=== PATIENT | male | born 1960 | race Caucasian/White ===

== ENCOUNTER 2022-05-01 08:30 | Outpatient (CLI) | payer OTHER, SELFPAY ==
--- NOTE | ~2022-05-01 | NM_ITS ---
EXAMINATION: NM clinton stress w perfusion DATE: 05/01/2022 12:10 INDICATION: Chest pain TECHNIQUE: Rest images were obtained following intravenous administration of 10 mCi Tc99m tetrofosmin (Myoview). The patient was infused intravenously with Lexiscan (Regadenoson). Then, 30 mCi Tc99m tet rofosmin (Myoview) was administered intravenously, and stress images were obtained in supine position . Repeat post stress images were obtained in prone position. Data was reconstructed into short axis a nd horizontal and vertical long axis SPECT images. Gated SPECT images were also obtained. COMPARISON: None. FINDINGS: Small mild nonreversible perfusion defect at the apical lateral and anteroapical segments w hich persists on prone imaging consistent with infarct. Second likely small mild nonreversible perfus ion defect at the basilar inferior and basilar lateral inferior segments also persistent on prone roberta ging and consistent with infarct. No reversible ischemia identified. There is normal left ventricular chamber size, wall motion and ejection fraction. Left ventricular ejection fraction measures 51%. IMPRESSION: 1. A couple small mild nonreversible infarcts involving the apical lateral and apical anterior segmen ts as well as the basilar inferior and basal lateral inferior segments. No reversible ischemia. 2. Left ventricular ejection fraction measuring 51%. Reviewed, dictated and finalized at location A. IMPRESSION: 1. A couple small mild nonreversible infarcts involving the apical lateral and apical anterior segments as well as the basilar inferior and basal lateral infe rior segments. No reversible ischemia. 2. Left ventricular ejection fraction measuring 51%.
--- NOTE | 2022-05-01 08:50 | ECHO_ITS ---
Patient Info Name: Carmelo Archer Age: 62 years : 1960 Gender: Male Ht: 70 in Wt: 230 lbs BSA: 2.30 m2 BP: 131 / 86 mmHg Technical Quality: Fair Exam Date: 05/01/2022 9:16 AM Exam Location: [facility] Pulmonary Patient Status: Outpatient Admit Date: 05/01/2022 Staff Ordering Physician: Rl Enrique PA-C Coupling Machine Operator: Jenifer Gray RDCS Attending Provider: Rl Enrique PA-C Referring Physician: Iva NOBLES; Exam Type: CA echo doppler color flow Study Info Indications R07.9 - Chest pain, unspecified Complete two-dimensional, color flow and Doppler transthoracic echocardiogram is performed. Summary 1. Complete two-dimensional, color flow and Doppler transthoracic echocardiogram is performed. 2. Left ventricular chamber dimension is normal. 3. Left ventricular systolic function is normal, estimated at 55-60%. 4. There is moderately increased left ventricular wall thickness. 5. The left ventricular diastolic function is grade I diastolic dysfunction. 6. E/e' 13 is mildly elevated. 7. Global longitudinal strain is abnormal at -11.9%. 8. Left atrial chamber dimension is mildly enlarged. 9. There is anterior directed jet of mild to moderate mitral valve regurgitation. 10. No pulmonary hypertension, estimated pulmonary arterial systolic pressure is 19 mmHg. Left Ventricle E/e' 13 is mildly elevated. Global longitudinal strain is abnormal at -11.9%. Left ventricular chamber dimension is normal. Left ventricular systolic function is normal, estimated at 55-60%. There is moderately increased left ventricular wall thickness. The left ventricular diastolic function is grade I diastolic dysfunction. Right Ventricle Right ventricular chamber dimension is normal. Right ventricular systolic function is normal. Left Atria Left atrial chamber dimension is mildly enlarged. Right Atria Right atrial chamber dimension is normal. Aortic Valve The aortic valve is trileaflet. There is no aortic valve stenosis. There is no aortic valve regurgitation. Pulmonic Valve There is no pulmonic regurgitation. Mitral Valve There is anterior directed jet of mild to moderate mitral valve regurgitation. There is no mitral valve stenosis. Tricuspid Valve There is no tricuspid valve regurgitation. No pulmonary hypertension, estimated pulmonary arterial systolic pressure is 19 mmHg. Pericardium/Pleural There is no pericardial effusion. Inferior Vena Cava Normal inferior vena cava with >50% collapse upon inspiration consistent with normal right atrial pressure, 5 mmHg. Aorta The aortic root size at the sinus of Valsalva is normal. Left Ventricular Outflow Tract Name Value Normal LVOT 2D LVOT Diameter 2.0 cm LVOT Doppler LVOT Peak Gradient 4 mmHg LVOT Mean Gradient 2 mmHg LVOT VTI 18 cm LVOT VTI/AV VTI Ratio 0.8 LVOT Stroke Volume 57 ml LVOT CO 2.6 l/min LVOT CI 1.1 l/min/m2
--- NOTE | 2022-05-01 08:51 | EST_ITS ---
Patient Info Name: Carmelo Archer Age: 62 years : 1960 Gender: Male Ht: 70 in Wt: 230 lbs BSA: 2.30 m2 HR: 53 bpm BP: 184 / 107 mmHg Heart Rhythm: Sinus Rhythm Exam Date: 05/01/2022 11:19 AM Exam Location: [facility] Stress Patient Status: Outpatient Admit Date: 05/01/2022 Staff Ordering Physician: Abelardo Pickett MD Attending Provider: Rl Enrique PA-C Exercise Technologist: Apple Dalton CT Exercise Physician: Everette Rubi DO Exam Type: CA stress clinton w NM Study Info Indications R06.02 - Shortness of breath R07.9 - Chest pain, unspecified A regadenoson stress test was performed. Summary 1. 1. Negative lexiscan stress test for ischemic ST changes by ECG criteria. 2. 2. Baseline hypertension. 3. 3. Nuclear scan to follow and will be reported separately. Please correlate with it. 4. 4. Patient informed of the above results. Protocol: Lexiscan Stress ECG Details Stage: REST Duration (min): 5 min : 8 sec HR (bpm): 54 SBP (mmHg): 184 DBP (mmHg): 107 Stage: REST Duration (min): 7 min : 1 sec HR (bpm): 54 SBP (mmHg): 184 DBP (mmHg): 107 Stage: STAGE 1 Duration (min): 1 min : 0 sec HR (bpm): 54 SBP (mmHg): 184 DBP (mmHg): 107 Stage: RECOVERY Duration (min): 1 min : 0 sec HR (bpm): 67 SBP (mmHg): 201 DBP (mmHg): 95 Stage: RECOVERY Duration (min): 2 min : 0 sec HR (bpm): 68 SBP (mmHg): 201 DBP (mmHg): 95 Stage: RECOVERY Duration (min): 3 min : 0 sec HR (bpm): 64 SBP (mmHg): 201 DBP (mmHg): 95 Stage: RECOVERY Duration (min): 3 min : 21 sec HR (bpm): 64 SBP (mmHg): 205 DBP (mmHg): 95 Rest HR: 54 bpm Peak HR: 70 bpm Rest Sys BP: 184 mmHg Peak Sys BP: 205 mmHg Max Pred HR: 157 bpm % Max Pred HR: 45 % Target HR: 133 bpm Max RPP: 14,350 bpm*mmHg Termination Reason: Completed protocol Cardiac Symptoms: Shortness of breath, Lightheadedness Total Time: 1 min : 0 sec Rest Mak BP: 107 mmHg Peak Mak BP: 95 mmHg Total Dose: 0.4 mg Resting ECG Sinus bradycardia, delayed precordial R/S transition. Stress ECG No ST changes. Arrhythmias Transient bradycardia to 40 bpm immediately after lexiscan injection. Report Signatures
== END 2022-05-01 08:31 | disposition home or self-care (01) ==
LOC: ANHCARD 08:32
PROVIDERS: PCP Family Medicine; Visit Provider Physician Assistant
DX: R07.9 Chest pain, unspecified (principal); I20.8 Other forms of angina pectoris
CPT/HCPCS: 78452; 93017; 93306; A9502; J2785

== ENCOUNTER 2022-08-25 00:57 | Day surgery (SDC) | payer OTHER, SELFPAY ==
[2022-08-25] VITALS (7 sets, daily range): BP systolic 153–209; BP diastolic 90–116; PULSE 55–72; RESP 15–22; TEMP 36.4; O2SAT 95–100; BMI 33.6
--- NOTE | 2022-08-25 08:38 | P.SEDATION_ITS ---
Moderate Sedation Note-Pt Data Patient Data Diagnosis: Mitral regurgitation Present Complaint: None Procedure to be performed/Plan: Transesophageal echocardiogram Allergies Allergy/AdvReac Type Severity Reaction Status Date / Time No Known Allergies Allergy Verified 08/25/22 07:36 Home Medications Medication Instructions Recorded Confirmed Type ibuprofen 800 mg tablet 800 mg PO Q8H #90 tabs 02/13/20 08/25/22 Rx metoprolol succinate 100 mg See Rx Instructions .Route 09/11/21 08/25/22 Rx tablet,extended release 24 hr .COMPLEX #30 tabs aspirin 81 mg tablet,delayed 81 mg PO DAILY 12/03/21 08/25/22 History release nitroglycerin 0.4 mg sublingual 0.4 mg sublingual Q5M PRN chest 12/03/21 08/25/22 Rx tablet pain #30 tabs metformin 500 mg tablet See Rx Instructions .Route 04/15/22 08/25/22 Rx .COMPLEX #270 tabs lisinopril 20 2 tablet PO DAILY #180 tabs 05/15/22 08/25/22 Rx mg-hydrochlorothiazide 12.5 mg tablet rosuvastatin 20 mg tablet 20 mg PO DAILY #90 tabs 07/14/22 08/25/22 Rx Current Medications: Active Medications Sodium Chloride (Normal Saline Iv) 500 mls @ 30 mls/hr IV CONT .[id number] JHON Sedation/Anesthesia: No previous sedation/anesthesia problems (including family history). FORMERLY [facility] Past Medical History Medical History Essential (primary) hypertension History of stress test (~2012) Mixed hyperlipidemia Type 2 diabetes mellitus without complications Family History Family History Mother Family history of lung cancer, Onset Age: 53 Family history of chronic obstructive pulmonary disease Social History Social History Smoking status: Never smoker Alcohol intake: current Mod Sed Physical Exam Physical Exam Pre Procedural Exam: Normal: Appearance, Eyes, Ears, Nose, Neck (Supple, normal range of motion), Throat (Posterior hypopharynx clear nonerythematous), Airway (Normal anatomy, no obstruction), Lungs (Clear to auscultation bilaterally), Heart Size, Heart Rate (Systolic murmur), Heart Rhythm, Neuro Exam, Abdomen, Extremities and Skin Hours since solid foods: 12 Hours since liquid intake: 12 Mallampati Classification: class II Internal Medicine - PN: Obj Da Vital Signs Vital Signs: Vital Signs - 24 hr 08/25/22 07:41 Temperature 36.4 C L Pulse Rate 58 L Respiratory Rate 22 H Blood Pressure 191/114 H Pulse Oximetry 100 Oxygen Delivery Room Air Meds/Results Medications: Active Medications Generic Name Dose Route Start Last Admin Trade Name Freq PRN Reason Stop Dose Admin Sodium Chloride 500 mls @ 30 mls/hr 08/25/22 07:30 Normal Saline Iv IV CONT .[id number] JHON ASA Classification/Sedation ASA Classification/Sedation ASA Class: III Emergent: No Risks: Risks, benefits and alternatives explained and patient/family accepted plan for sedation. Patient re-evaluated immediately prior to sedation.
--- NOTE | 2022-08-25 08:41 | WPDHPUPDATE1 ---
History and Physical Update Update Date/Time: 08/25/22 08:41 History and Physical has been reviewed, including an updated exam of the patient. There are NO changes in the patient's condition. Risks, benefits, and alternatives have been discussed and questions answered. Patient agrees to proceed with procedure.
--- NOTE | 2022-08-25 08:41 | WPDTEECHO ---
[facility] TransEsophageal Echocardiogram Date of procedure: 08/25/22 Procedure Type: Transesophageal echocardiogram Diagnosis: Mitral regurgitation, shortness of breath Indications: Shortness of breath, mitral regurgitation Image Quality: Acceptable Findings: Brief history present illness: Patient is a pleasant 62-year-old male with a past medical history significant for hypertension, type 2 diabetes mellitus, hyperlipidemia and significant murmur with surface echocardiogram suggesting [id number] eccentric regurgitation and complaints of fatigue and exertional dyspnea referred for transesophageal echocardiogram. Procedure in detail: After verbal and written informed consent was obtained the patient risks, benefits, and alternatives explained in detail the patient agreed to proceed with the plan of care as outlined above. The patient was evaluated at bedside in the [facility] procedure room. The posterior oropharynx, neck, and jaw angle all within normal limits on examination. Lungs were clear to auscultation. See pre-sedation note for further details The patient was then placed in the appropriate 30 to 45 degree angle supine position at a slight left lateral decubitus position. Patient was monitored throughout the study with telemetry, oxygen saturation, end-tidal CO2 monitoring, blood pressure, heart rate, and respirations. The posterior hypopharynx was then locally anesthetized using repeated administration of Hurricaine spray as well as gargled viscous lidocaine. After local anesthetic of the posterior hypopharynx was achieved and the oral bite block placed, moderate sedation was administered. After confirmation of adequate moderate sedation, the transesophageal echocardiogram probe was advanced through the oral bite block into the posterior hypopharynx and into the esophagus easily and without complication. Multiple, multiplanar echocardiographic images were obtained in multiple standard re- projections. Pulsed wave, continuous-wave, and color-flow Doppler were utilized in conjunction with this study. At the conclusion of the study, the transesophageal echocardiogram probe was removed easily and without complication. The patient tolerated the procedure well without difficulty. Patient was in sinus rhythm throughout the study. Moderate Sedation/Anesthesia administration: Patient reports no prior problems with sedation/anesthesia. Please see pre-sedation noted for physical examination documentation. As noted above, after adequate local anesthesia of the posterior hypopharynx was achieved, a total of 3mg intravenous Versed and a total of 75mcg intravenous Fentanyl in multiple divided doses was administered for moderate sedation. Sedation start time was 0854 and end time was 0914 for a total intra-service/procedure face-face time of 20 minutes. Sedation was administered by a qualified/certified observer Monica Larsen RN under my supervision with intra-procedure [id number] observation and management throughout the entirety of the procedure. There were no other issues or complications and patient tolerated the procedure well. See post-anesthesia documentation. FINDINGS: LEFT VENTRICLE: Size and systolic function were within normal limits without wall motion abnormalities with ejection fraction of 65% with mild concentric left ventricular hypertrophy. RIGHT VENTRICLE: Not well visualized although suspected normal size and function with limited views. LEFT ATRIUM: Mild left atrial enlargement RIGHT ATRIUM: Normal size. INTERATRIAL SEPTUM: Interatrial septum is anatomically normal without evidence of shunt with color-flow Doppler nor with injection of agitated saline with and without Valsalva. MITRAL VALVE: Mitral valve is anatomically normal minimal thickening of the posterior leaflet with preserved leaflet excursion and evidence of probable partial prolapse of the middle scallop with moderate highly eccentric anteriorly d
== END 2022-08-25 10:00 | disposition home or self-care (01) ==
PROVIDERS: PCP Emergency Medicine; Visit Provider Internal Medicine Cardiovascular Disease
PROC: (CPT 93312; principal; 2022-08-25 08:30)
DX: I34.0 Nonrheumatic mitral (valve) insufficiency (principal); R06.02 Shortness of breath; I10 Essential (primary) hypertension; E78.2 Mixed hyperlipidemia; E11.9 Type 2 diabetes mellitus without complications; Z79.84 Long term (current) use of oral hypoglycemic drugs; Z79.82 Long term (current) use of aspirin
CPT/HCPCS: 93312; 93320; 93325; J2250; J3010; J7030

== ENCOUNTER 2022-09-17 01:03 | Day surgery (SDC) | payer OTHER, SELFPAY ==
[2022-09-16 13:30] VITALS: BMI 33.3
[2022-09-17] VITALS (27 sets, daily range): BP systolic 102–170; BP diastolic 58–87; PULSE 54–77; RESP 12–20; TEMP 36.1–36.8; O2SAT 96–100; BMI 33.7
[2022-09-17 07:42] LABS: Basophils Absolute Auto 0.1 K/mm3 (0.0-0.1); Basophils Percent Auto 0.8 % (0.2-1.2); Eosinophils Absolute Auto 0.3 K/mm3 (0-0.3); Eosinophils Percent Auto 2.4 % (0-4.4); Hematocrit 45.3 % (42.0-52.0); Hemoglobin 14.5 g/dL (14.0-18.0); Immature Granulocyte Absolute 0.03 K/mm3 (0.00-0.031); Immature Granulocyte Percent A 0.3 % (0-0.5); Lymphocytes Absolute Auto 2.07 K/mm3 (0.9-3.2); Lymphocytes Percent Auto 20.3 % (18.3-44.2); Mean Corpuscular Hemoglobin 26.7 pg (26-34); Mean Corpuscular Volume 83.4 fl (80-100); Mean Platelet Volume 10.1 fl (7.4-10.4); Monocytes Absolute Auto 0.8 K/mm3 (0.1-0.6); Monocytes Percent Auto 7.9 % (2.6-8.5); Neutrophils Percent Auto 68.3 % (45.5-73.1); Platelet Count Result 236 k/mm3 (150-375); Red Blood Count 5.43 M/mm3 (4.6-6.20); Red Cell Distribution Width 13.5 % (11.5-14.5); White Blood Count 10.2 K/mm3 (4.5-10.0)
[2022-09-17 07:57] LABS: Anion Gap 12 mmol/L (8-16); Blood Urea Nitrogen 23 mg/dL (9-20); Calcium 9.1 mg/dL (8.4-10.2); Carbon Dioxide 29 mmol/L (22-30); Chloride 98 mmol/L (98-107); Estimated CRCL calculation 75 ml/min; Estimated Glomerular Filt Rate > 60; Glucose 201 mg/dL (65-110); Potassium 3.6 mmol/L (3.4-5.0); Sodium 139 mmol/L (137-145)
[2022-09-17 08:00] LABS: Prothrombin Time 12.6 Seconds (11.1-14.7)
--- NOTE | 2022-09-17 08:33 | WPDHPUPDATE1 ---
History and Physical Update Update Date/Time: 09/17/22 08:33 History and Physical has been reviewed, including an updated exam of the patient. There are NO changes in the patient's condition. Risks, benefits, and alternatives have been discussed and questions answered. Patient agrees to proceed with procedure.
--- NOTE | 2022-09-17 08:33 | WPDMODSED ---
Moderate Sedation Note-Pt Data Patient Data Diagnosis: Severe mitral regurgitation, preoperative evaluation Present Complaint: None Procedure to be performed/Plan: Left heart catheterization with selective left and right coronary angiography with left ventriculography and hemodynamics History and physical update: Patient is a pleasant 62-year-old gentleman with a history of type 2 diabetes mellitus, hypertension, hyperlipidemia and suspected severe mitral valve regurgitation with complaints of progressive fatigue and exertional dyspnea who underwent noninvasive ischemic evaluation with small fixed defect in apical lateral, apical anterior, basal inferior basal inferolateral wall without ischemia EF 51% which did not resolve with prone imaging referred for left heart catheterization for delineation of his coronary anatomy based on this and anticipation for possible mitral valve replacement and/or repair. Impression/plan of care: Abnormal stress test-[facility] Severe mitral regurgitation-referral to Dr. Maguire at [facility] for possible mitral clip vs surgical MV repair/replacement. Hypertension-continue medical management Diabetes mellitus-medical management Further recommendations to follow post cardiac catheterization. Allergies Allergy/AdvReac Type Severity Reaction Status Date / Time No Known Allergies Allergy Verified 09/17/22 07:42 Home Medications Medication Instructions Recorded Confirmed Type metoprolol succinate 100 mg See Rx Instructions .Route 09/11/21 09/16/22 Rx tablet,extended release 24 hr .COMPLEX #30 tabs aspirin 81 mg tablet,delayed 81 mg PO DAILY 12/03/21 09/16/22 History release nitroglycerin 0.4 mg sublingual 0.4 mg sublingual Q5M PRN chest 12/03/21 09/16/22 Rx tablet pain #30 tabs metformin 500 mg tablet See Rx Instructions .Route 04/15/22 09/16/22 Rx .COMPLEX #270 tabs lisinopril 20 2 tablet PO DAILY #180 tabs 05/15/22 09/17/22 Rx mg-hydrochlorothiazide 12.5 mg tablet rosuvastatin 20 mg tablet 20 mg PO DAILY #90 tabs 07/14/22 09/16/22 Rx ibuprofen 800 mg tablet 800 mg PO Q8H PRN Pain 09/16/22 09/16/22 History Current Medications: Active Medications Sodium Chloride (Normal Saline Iv) 500 mls @ 100 mls/hr IV CONT .Q5H JHON Sedation/Anesthesia: No previous sedation/anesthesia problems (including family history). [facility] Past Medical History Medical History Essential (primary) hypertension History of stress test (~2012) Mixed hyperlipidemia Type 2 diabetes mellitus without complications Family History Family History Mother Family history of lung cancer, Onset Age: 53 Family history of chronic obstructive pulmonary disease Social History Social History Smoking packs per day: 0 Smoking cigarettes per day: 0.0 Smoking status: Never smoker Second hand tobacco smoke exposure: No Alcohol intake: current Substance use: never Substance use type: does not use Living arrangements: alone Spiritual care concerns: No Mod Sed Physical Exam Physical Exam Pre Procedural Exam: Normal: Appearance, Eyes, Ears, Nose, Neck (Supple, normal range of motion), Throat (Posterior hypopharynx clear, nonerythematous), Airway (Normal anatomy, no obstruction), Lungs (Clear to auscultation bilaterally), Heart Size, Heart Rate, Heart Rhythm, Neuro Exam, Abdomen, Liver, Extremities and Skin Hours since solid foods: 12 Hours since liquid intake: 12 Mallampati Classification: class II Internal Medicine - PN: Obj Da Vital Signs Vital Signs: Vital Signs - 24 hr 09/17/22 07:33 Temperature 36.1 C L Pulse Rate 56 L Respiratory Rate 14 Blood Pressure 170/75 H Pulse Oximetry 97 Oxygen Delivery Room Air Meds/Results Medications: Active Medications Generic Name Dose Route Start Last Admin Trade Name Ankur Adkins
--- NOTE | 2022-09-17 08:38 | PM.OP ---
Procedure Note - Brief Procedure Note - Brief Date of procedure: 09/17/22 Pre-op diagnosis: preop mitraclip Abnormal stress test, severe mitral regurgitation, exertional dyspnea Procedure performed: Left heart catheterization with selective left and right coronary angiography with left ventriculography and hemodynamics Description of procedure: BRIEF HISTORY OF PRESENT ILLNESS: Patient is a pleasant 62-year-old male with a history of hypertension, hyperlipidemia, diabetes mellitus and suspected severe mitral valve regurgitation with complaints of fatigue, exertional dyspnea with abnormal stress test suggestive fixed defects without reversible ischemia EF 51% referred for left heart catheterization for delineation of his coronary anatomy in consideration for preoperative evaluation. PROCEDURES PERFORMED: 1. Left heart catheterization 2. Selective left and right coronary angiography 3. Left ventriculography and hemodynamics 4. Moderate/conscious sedation administration CATHETERS UTILIZED: Left coronary system- 5 [place]ian JL4 catheter Right coronary system- 5 [place]amanian JR4 catheter Left ventriculography and hemodynamics- 5 [place]ian angled pigtail catheter PROCEDURE IN DETAIL: After verbal and written informed consent was obtained the patient, risks, benefits, and alternatives explained in detail the patient agreed to proceed with the plan of care as outlined above. The patient was subsequently brought to the cardiac catheterization lab, placed on the cardiac catheterization table, and prepped and draped in the usual sterile fashion. Utilizing approximately 19cc of 1% subcutaneous Lidocaine, the right groin was then locally anesthetized. Utilizing the modified Seldinger technique, a 5 [place]amanian arterial vascular access sheath was inserted in the right common femoral artery easily and without complications. Through this access, coronary angiography was subsequently obtained in multiple standard re-projections. Following this, a 5 [place]ian angled pigtail catheter was advanced retrograde across aortic valve into the cavity of the left ventricle. Left ventriculography was performed and pullback across aortic valve was subsequently recorded. The vascular access sheath and angiographic catheters were flushed before and after catheter exchanges. At the conclusion of the diagnostic portion of the procedure, all angiographic guidewires and catheters were removed and the 5 [place]amanian arterial vascular access sheath was then eventually pulled and satisfactory hemostasis was achieved using manual compression. Initial delay and removal that she secondary to severely elevated blood pressures. Prior to beginning the case systolic blood pressures were greater than 250 mm Hg for which 10 mg IV hydralazine was administered with improvement in BP. She remained hypertensive throughout the procedure intervention became even more hypertensive with systolic blood pressure is climbing back up to greater than 220 mm Hg prompting another 10 mg IV hydralazine. Blood pressure remained unacceptably high after the case for sheath removal for which an additional 10 mg IV hydralazine was administered for total 30 mg. There no complications noted at the conclusion of the diagnostic portion of the study. MODERATE SEDATION/ANESTHESIA ADMINISTRATION: Patient reports no prior problems with sedation/anesthesia. Please see pre-sedation noted for physical examination documentation. Sedation start time was 0903 and end time was 0933 for a total intra-service/procedure face-face time of 30 minutes. A total of 2 mg intravenous Versed and a total of 50 mcg intravenous Fentanyl was administered for moderate sedation. Moderate sedation was administered by qualified/certified observer Jolly Short RN under my supervision with intra-procedure [id number] observation and management throughout the entirety of the procedure. There were no other issues or complications and patient tolerated the procedure well. Se
--- NOTE | 2022-09-17 10:02 | ECG_ITS ---
Measurements Intervals [place] Rate: 64 P: 53 AR: 179 QRS: 1 QRSD: 104 T: 136 QT: 422 QTc: 436 Interpretive Statements SINUS RHYTHM POSSIBLE LEFT ATRIAL ENLARGEMENT ST-T WAVE ABNORMALITY IN LAT/HIGH LAT LEADS- CONSIDER ISCHEMIA ABNORMAL ECG NO PREVIOUS ECG AVAILABLE FOR COMPARISON Electronically Signed On 09-17-2022 12:12:32 DEMO SPECIALIST by Everette Rubi D.O.
[2022-09-17] MEDS: SODIUM CHLORIDE 0.9% IV 1,000 ML 125 ML IV CONT (10:08)
--- NOTE | 2022-09-17 10:28 | SUR.PHASEII ---
Pt resting in bed, reports pain has decreased in sharpness from 5 to 4 out of 10, VSS, Dr. John at bedside discussing plan with patient. Awaiting further orders.
--- NOTE | 2022-09-17 11:45 | ECG_ITS ---
Measurements Intervals [place] Rate: 60 P: -23 SD: 168 QRS: 1 QRSD: 108 T: 122 QT: 440 QTc: 441 Interpretive Statements SINUS RHYTHM ST-T WAVE ABNORMALITY IN LAT/HIGH LAT LEADS- CONSIDER ISCHEMIA ABNORMAL ECG COMPARED TO ECG 09/17/2022 10:05:46 NO SIGNIFICANT CHANGES Electronically Signed On 09-17-2022 12:15:09 EDUCATIONAL COORDINATOR by Everette Rubi D.O.
--- NOTE | 2022-09-17 15:38 | PC.NURSE ---
Pt sat up on side of bed, reported mild lightheadedness that resolved after sitting for a couple minutes. Pt walked to restroom and voided without difficulty. Pt returned to chair, reported feeling lightheaded and symptoms resolved after placing a cold compress to the back of his neck, VSS, NAD noted, pt now eating and reports feeling much better.
--- NOTE | 2022-09-17 16:38 | ECG_ITS ---
Measurements Intervals [place] Rate: 68 P: -15 UT: 181 QRS: -7 QRSD: 104 T: 136 QT: 419 QTc: 446 Interpretive Statements SINUS RHYTHM VENTRICULAR PREMATURE COMPLEX DELAYED PRECORDIAL R/S TRANSITION LEFT VENTRICULAR HYPERTROPHY AND ST-T CHANGE ST-T WAVE ABNORMALITY IN LATERAL LEADS- CONSIDER ISCHEMIA ABNORMAL ECG COMPARED TO ECG 09/17/2022 11:57:09 LEFT VENTRICULAR HYPERTROPHY NOW PRESENT Electronically Signed On 09-17-2022 17:28:09 PRESS CLIPPER by Everette Rubi D.O.
[2022-09-17] MEDS: SODIUM CHLORIDE 0.9% IV 500 ML 999 ML IV CONT (16:40)
[2022-09-17 16:56] LABS: Glucose Point of Care 312 mg/dl (65-105)
--- NOTE | 2022-09-17 17:14 | SUR.PHASEII ---
Addendum entered by Rl Colindres RN 09/17/22 17:40: Chest pain began at 1635 Original Note: Pt reported an episode of mild chest pain 01/09, Dr. John notified, EKG obtained, pain resolved after about a few minutes. Dr. John came to bedside and discussed with pt, pt reports his CP went away and he feels fine and would prefer to go home. Repeat orthostatic VS completed and pt no longer symptomatic after 500 ml bolus. Pt ambulated down hallway and back without difficulty, pt denies shortness of breath, chest pain, lightheadedness or other symptoms. Dr. John notified. Prepare for discharge home, pt has a friend that will stay with him overnight. Pt and friend, Kaylie, educated on calling 911 if new symptoms present or if chest pain reoccurs.
== END 2022-09-17 17:20 | disposition home or self-care (01) ==
PROVIDERS: PCP Emergency Medicine; Visit Provider Internal Medicine Cardiovascular Disease
PROC: 4A023N7 Measurement of Cardiac Sampling and Pressure, Left Heart, Percutaneous Approach (ICD-10-PCS; CPT 93452; principal; 2022-09-17 08:30)
DX: I25.10 Atherosclerotic heart disease of native coronary artery without angina pectoris (principal); R07.9 Chest pain, unspecified; R94.39 Abnormal result of other cardiovascular function study; I34.0 Nonrheumatic mitral (valve) insufficiency; R06.09 Other forms of dyspnea; I10 Essential (primary) hypertension; E78.2 Mixed hyperlipidemia; E11.9 Type 2 diabetes mellitus without complications; Z79.82 Long term (current) use of aspirin; Z79.84 Long term (current) use of oral hypoglycemic drugs
CPT/HCPCS: 36415; 80048; 82948; 85025; 85610; 93005; 93458; A9270; C1887; C1894; J0360; J1644; J2250; J3010; J7040

== ENCOUNTER 2022-11-27 14:04 | Outpatient (CLI) | payer OTHER, SELFPAY ==
[2022-11-27 19:23] LABS: Basophils Absolute Auto 0.1 K/mm3 (0.0-0.1); Eosinophils Absolute Auto 0.6 K/mm3 (0-0.3); Eosinophils Percent Auto 5.9 % (0-4.4); Hematocrit 35.3 % (42.0-52.0); Hemoglobin 10.3 g/dL (14.0-18.0); Immature Granulocyte Absolute 0.05 K/mm3 (0.00-0.031); Immature Granulocyte Percent A 0.5 % (0-0.5); Lymphocytes Absolute Auto 1.28 K/mm3 (0.9-3.2); Lymphocytes Percent Auto 11.9 % (18.3-44.2); Mean Corpuscular HGB Conc 29.2 g/dl (32-36); Mean Corpuscular Hemoglobin 24.3 pg (26-34); Mean Corpuscular Volume 83.5 fl (80-100); Mean Platelet Volume 10.1 fl (7.4-10.4); Monocytes Absolute Auto 1.1 K/mm3 (0.1-0.6); Monocytes Percent Auto 10.4 % (2.6-8.5); Neutrophils Absolute Auto 7.6 K/mm3 (1.3-6.7); Neutrophils Percent Auto 70.3 % (45.5-73.1); Platelet Count Result 525 k/mm3 (150-375); Red Blood Count 4.23 M/mm3 (4.6-6.20); Red Cell Distribution Width 15.7 % (11.5-14.5); White Blood Count 10.8 K/mm3 (4.5-10.0)
[2022-11-27 20:05] LABS: Hypochromasia 1+ (NORMAL); Platelet Estimate Increased (Adequate); Schistocytes None Seen (NORMAL)
[2022-11-27 20:06] LABS: Anisocytosis 2+ (NORMAL)
[2022-11-27 20:23] LABS: Alanine Aminotransferase 16 U/L (6-50); Albumin Level 4.2 g/dL (3.5-5.1); Alkaline Phosphatase 86 U/L (38-126); Anion Gap 9 mmol/L (8-16); Aspartate Amino Transferase 24 U/L (17-59); Bilirubin,Total 0.3 mg/dL (0.2-1.3); Blood Urea Nitrogen 14 mg/dL (9-20); Carbon Dioxide 27 mmol/L (22-30); Chloride 104 mmol/L (98-107); Estimated Glomerular Filt Rate 47; Glucose 162 mg/dL (65-110); Potassium 4.6 mmol/L (3.4-5.0); Sodium 140 mmol/L (137-145)
[2022-11-27 20:31] LABS: Microalbumin Urine Random 61.6 mg/L (0-16.7)
[2022-11-27 20:57] LABS: MALB Creatinine Ratio 16.6 mg/g (0-30)
== END 2022-11-27 14:05 | disposition home or self-care (01) ==
LOC: ANHGOSHLAB 14:05
PROVIDERS: PCP Emergency Medicine; Visit Provider Emergency Medicine
DX: D64.9 Anemia, unspecified (principal); E11.9 Type 2 diabetes mellitus without complications; R19.5 Other fecal abnormalities
CPT/HCPCS: 36415; 80053; 82043; 83036; 85025

== ENCOUNTER 2023-01-08 09:44 | Outpatient (CLI) | payer OTHER, SELFPAY ==
[2023-01-08 20:39] LABS: Anion Gap 9 mmol/L (8-16); Blood Urea Nitrogen 25 mg/dL (9-20); Calcium 9.2 mg/dL (8.4-10.2); Carbon Dioxide 32 mmol/L (22-30); Chloride 97 mmol/L (98-107); Cholesterol 176 mg/dL (0-200); Estimated Glomerular Filt Rate > 60; Glucose 187 mg/dL (65-110); HDL Direct 40 mg/dL; Potassium 4.1 mmol/L (3.4-5.0); Sodium 138 mmol/L (137-145); Triglycerides 250 mg/dL (<150)
[2023-01-08 20:53] LABS: LDL Cholesterol Direct 82 mg/dL
== END 2023-01-08 09:45 | disposition home or self-care (01) ==
LOC: ANHGOSHLAB 09:46
PROVIDERS: PCP Emergency Medicine; Visit Provider Internal Medicine Cardiovascular Disease
DX: E11.59 Type 2 diabetes mellitus with other circulatory complications (principal); I15.2 Hypertension secondary to endocrine disorders
CPT/HCPCS: 36415; 80048; 80061

== ENCOUNTER 2023-01-29 14:02 | Outpatient (CLI) | payer OTHER, SELFPAY ==
[2023-01-29 19:21] LABS: Basophils Absolute Auto 0.1 K/mm3 (0.0-0.1); Basophils Percent Auto 0.8 % (0.2-1.2); Eosinophils Absolute Auto 0.3 K/mm3 (0-0.3); Eosinophils Percent Auto 2.4 % (0-4.4); Hematocrit 44.7 % (42.0-52.0); Hemoglobin 13.1 g/dL (14.0-18.0); Immature Granulocyte Absolute 0.04 K/mm3 (0.00-0.031); Immature Granulocyte Percent A 0.4 % (0-0.5); Lymphocytes Absolute Auto 2.07 K/mm3 (0.9-3.2); Lymphocytes Percent Auto 18.7 % (18.3-44.2); Mean Corpuscular HGB Conc 29.3 g/dl (32-36); Mean Corpuscular Hemoglobin 22.8 pg (26-34); Mean Corpuscular Volume 77.7 fl (80-100); Mean Platelet Volume 10.7 fl (7.4-10.4); Monocytes Percent Auto 9.4 % (2.6-8.5); Neutrophils Absolute Auto 7.5 K/mm3 (1.3-6.7); Neutrophils Percent Auto 68.3 % (45.5-73.1); Platelet Count Result 290 k/mm3 (150-375); Red Blood Count 5.75 M/mm3 (4.6-6.20); Red Cell Distribution Width 19.2 % (11.5-14.5); White Blood Count 11.1 K/mm3 (4.5-10.0)
[2023-01-29 19:33] LABS: Hypochromasia 1+ (NORMAL); Ovalocytes 1+ (NORMAL); Platelet Estimate Adequate (Adequate); Schistocytes None Seen (NORMAL)
== END 2023-01-29 14:03 | disposition home or self-care (01) ==
LOC: ANHGOSHLAB 14:04
PROVIDERS: PCP Emergency Medicine; Visit Provider Physician Assistant
DX: D64.9 Anemia, unspecified (principal)
CPT/HCPCS: 36415; 85025

== ENCOUNTER 2023-01-30 19:34 | Emergency (ER) | payer OTHER, SELFPAY ==
[2023-01-30 19:44] VITALS: BP 192/89; PULSE 114; RESP 16; TEMP 36.3; O2SAT 100
--- NOTE | 2023-01-30 19:57 | ED.GENADULT ---
HPI - General Adult General Chief complaint: Back Pain/Injury Stated complaint: BACK PAIN Time Seen by Provider: 01/30/23 19:45 Source: patient, RN notes reviewed and old records reviewed Mode of arrival: ambulatory Limitations: no limitations History of Present Illness HPI narrative: 63 year old male with complaints of pain to the thoracic medial spine region down to lower back with some spasm like sensations which started about an hour ago. Patient reports that he took 600 mg of Ibuprofen which s starting to help his discomfort at this time. Patient denies any known injury to his back or any radiation of pain down his buttock or into his legs. Patient reports that he has had back pain in the past also, denies any known chronic back issue. Patient had open heart in October 05 vessel bypass, states he is attending cardiac rehab and doing well. MD complaint: back pain Onset (ago): hour(s) (1) Severity scale (1-10): 6 Quality: aching and other (spasms) Treatments prior to arrival: NSAID Related Data Home Medications Medication Instructions Recorded Confirmed aspirin 81 mg tablet,delayed 81 mg PO DAILY 12/03/21 01/30/23 release ferrous sulfate 325 mg (65 mg 325 mg PO DAILY 11/27/22 01/30/23 iron) tablet metoprolol tartrate 25 mg tablet 25 mg PO DAILY 11/27/22 01/30/23 lisinopril 20 1 tablet PO DAILY 12/29/22 01/30/23 mg-hydrochlorothiazide 12.5 mg tablet rosuvastatin 20 mg tablet 40 mg PO DAILY 01/26/23 01/30/23 Allergies Allergy/AdvReac Type Severity Reaction Status Date / Time isosorbide Allergy Fatigued Verified 01/30/23 19:41 Review of Systems Review of Systems: CONSTITUTIONAL: Denies fever, chills, or sweats. EYES: Denies visual changes, redness, or discharge. ENT: Denies rhinorrhea, congestion, sore throat, or otalgia. CARDIOVASCULAR: Denies chest pain, palpitations, or edema. RESPIRATORY: Denies cough or dyspnea. GASTROINTESTINAL: Denies abdominal pain, nausea, vomiting, or diarrhea. GENITOURINARY: Denies dysuria or hematuria. SKIN: Denies rash or itching. MUSCULOSKELETAL: Report back pain,no joint pain, or myalgia.some spasm type sensation NEUROLOGIC: Denies headache, numbness, or weakness. PSYCHIATRIC: Denies anxiety or depression. All systems reviewed & are unremarkable except as noted in HPI and below PMFSH Past Medical History Medical History Essential (primary) hypertension FH: mitral valve repair History of stress test (~2012) Mixed hyperlipidemia Type 2 diabetes mellitus without complications Surgical History Surgical History History of quadruple bypass Family History Family History Mother Family history of lung cancer, Onset Age: 53 Family history of chronic obstructive pulmonary disease Social History Social History Smoking packs per day: 0 Smoking cigarettes per day: 0.0 Smoking status: Never smoker Second hand tobacco smoke exposure: No Alcohol intake: current Substance use: never Substance use type: does not use Living arrangements: alone Spiritual care concerns: No Comments At time of signature, agree with nursing past medical, surgical, social and family history. There is no relevant family history pertinent to the presenting complaint Exam Narrative: GENERAL: Well-appearing, well-nourished, and in no acute distress. HEAD: Normocephalic, atraumatic. EYES: PERRLA and EOMI. ENT: Nares clear, no rhinorrhea or epistaxis. Mucous membranes moist.TM's normal NECK: Supple.no lymphadenopathy CHEST: Clear to auscultation. No respiratory distress.SAO2 on room air HEART: Regular rate and rhythm. No murmur heard. Normal peripheral pulses. ABDOMEN: Soft, nontender, nondistended, normal active bowel sounds. EXTREMITIES: Normal range of motion. No
== END 2023-01-30 20:12 | disposition home or self-care (01) ==
PROVIDERS: Emergency Provider Registered Nurse; PCP Physician Assistant
DX: M54.6 Pain in thoracic spine (principal); I10 Essential (primary) hypertension; E78.2 Mixed hyperlipidemia; E11.9 Type 2 diabetes mellitus without complications; Z95.1 Presence of aortocoronary bypass graft; Z79.82 Long term (current) use of aspirin
CPT/HCPCS: 99213; G0463

== ENCOUNTER 2023-04-03 11:26 | Outpatient (CLI) | payer OTHER, SELFPAY ==
[2023-04-03 18:25] LABS: Basophils Absolute Auto 0.1 K/mm3 (0.0-0.1); Basophils Percent Auto 0.7 % (0.2-1.2); Eosinophils Absolute Auto 0.2 K/mm3 (0-0.3); Eosinophils Percent Auto 1.7 % (0-4.4); Hematocrit 46.2 % (42.0-52.0); Hemoglobin 13.9 g/dL (14.0-18.0); Immature Granulocyte Absolute 0.04 K/mm3 (0.00-0.031); Immature Granulocyte Percent A 0.4 % (0-0.5); Lymphocytes Percent Auto 24.1 % (18.3-44.2); Mean Corpuscular HGB Conc 30.1 g/dl (32-36); Mean Corpuscular Hemoglobin 23.9 pg (26-34); Mean Corpuscular Volume 79.5 fl (80-100); Mean Platelet Volume 10.4 fl (7.4-10.4); Monocytes Percent Auto 9.9 % (2.6-8.5); Neutrophils Absolute Auto 6.3 K/mm3 (1.3-6.7); Neutrophils Percent Auto 63.2 % (45.5-73.1); Platelet Count Result 280 k/mm3 (150-375); Red Blood Count 5.81 M/mm3 (4.6-6.20); Red Cell Distribution Width 18.7 % (11.5-14.5)
[2023-04-03 18:34] LABS: Alanine Aminotransferase 26 U/L (6-50); Albumin Level 4.7 g/dL (3.5-5.1); Alkaline Phosphatase 55 U/L (38-126); Anion Gap 7 mmol/L (8-16); Aspartate Amino Transferase 32 U/L (17-59); Bilirubin,Total 0.7 mg/dL (0.2-1.3); Blood Urea Nitrogen 19 mg/dL (9-20); Calcium 9.6 mg/dL (8.4-10.2); Carbon Dioxide 34 mmol/L (22-30); Chloride 97 mmol/L (98-107); Estimated Glomerular Filt Rate > 60; Glucose 160 mg/dL (65-110); Sodium 138 mmol/L (137-145)
[2023-04-03 18:35] LABS: Iron 125 ug/dL (49-181)
[2023-04-03 18:46] LABS: Percent Iron Saturation 31 % (20-50)
== END 2023-04-03 11:27 | disposition home or self-care (01) ==
LOC: ANHGOSHLAB 11:27
PROVIDERS: PCP Physician Assistant; Visit Provider Physician Assistant
DX: D64.9 Anemia, unspecified (principal); R06.02 Shortness of breath
CPT/HCPCS: 36415; 80053; 82728; 83540; 83550; 84443; 85025

== ENCOUNTER 2023-04-03 11:55 | Outpatient (CLI) | payer OTHER, SELFPAY ==
--- NOTE | ~2023-04-03 | XR_ITS ---
Clinical Indication: Shortness of breath PA and lateral views of the chest: Comparison: None Findings: 17 mm right basilar pulmonary nodule is present. Left lung clear. Cardiomediastinal silhou ette is within normal limits, status post CABG. Bones and soft tissues are unremarkable. Impression: 17 mm right basilar pulmonary nodule. This may be calcified, but CT scan is recommended to better ass ess morphology. Status post CABG. Reviewed, dictated and finalized at location . Impression: 17 mm right basilar pulmonary nodule. This may be calcified, but CT scan is rec ommended to better assess morphology. Status post CABG.
== END 2023-04-03 11:56 | disposition home or self-care (01) ==
PROVIDERS: PCP Physician Assistant; Visit Provider Physician Assistant
DX: R06.02 Shortness of breath (principal); Z95.1 Presence of aortocoronary bypass graft; R91.1 Solitary pulmonary nodule
CPT/HCPCS: 71046

== ENCOUNTER 2023-05-06 13:30 | Outpatient (RCR) | payer OTHER, SELFPAY ==
[2023-01-13 08:26] VITALS: PULSE 70
[2023-01-28 14:25] LABS: Glucose Point of Care 162 mg/dl (65-105)
== END 2023-05-06 15:00 | disposition home or self-care (01) ==
LOC: ANHCPREHAB 13:30
PROVIDERS: PCP Emergency Medicine; Visit Provider Internal Medicine Cardiovascular Disease
DX: Z95.1 Presence of aortocoronary bypass graft (principal)
CPT/HCPCS: 93798

== ENCOUNTER 2024-02-17 08:50 | Outpatient (CLI) | payer MEDICARE, SELFPAY ==
[2024-02-17 12:15] LABS: Basophils Absolute Auto 0.1 K/mm3 (0.0-0.1); Basophils Percent Auto 0.9 % (0.2-1.2); Eosinophils Absolute Auto 0.2 K/mm3 (0-0.3); Eosinophils Percent Auto 2.3 % (0-4.4); Hematocrit 48.7 % (42.0-52.0); Immature Granulocyte Absolute 0.06 K/mm3 (0.00-0.031); Immature Granulocyte Percent A 0.6 % (0-0.5); Lymphocytes Absolute Auto 2.74 K/mm3 (0.9-3.2); Lymphocytes Percent Auto 28.9 % (18.3-44.2); Mean Corpuscular HGB Conc 30.8 g/dl (32-36); Mean Corpuscular Hemoglobin 26.7 pg (26-34); Mean Corpuscular Volume 86.8 fl (80-100); Mean Platelet Volume 10.4 fl (7.4-10.4); Monocytes Absolute Auto 0.9 K/mm3 (0.1-0.6); Neutrophils Absolute Auto 5.5 K/mm3 (1.3-6.7); Neutrophils Percent Auto 58.3 % (45.5-73.1); Platelet Count Result 294 k/mm3 (150-375); Red Blood Count 5.61 M/mm3 (4.6-6.20); Red Cell Distribution Width 13.4 % (11.5-14.5); White Blood Count 9.5 K/mm3 (4.5-10.0)
[2024-02-17 12:29] LABS: Alanine Aminotransferase 24 U/L (6-50); Albumin Level 4.6 g/dL (3.5-5.1); Alkaline Phosphatase 57 U/L (38-126); Anion Gap 9 mmol/L (4-12); Aspartate Amino Transferase 44 U/L (17-59); Bilirubin,Total 0.6 mg/dL (0.2-1.3); Blood Urea Nitrogen 24 mg/dL (9-20); Calcium 9.9 mg/dL (8.4-10.2); Carbon Dioxide 30 mmol/L (22-30); Chloride 100 mmol/L (98-107); Cholesterol 161 mg/dL (0-200); Estimated Glomerular Filt Rate > 60; Glucose 249 mg/dL (65-110); HDL Direct 41 mg/dL; Potassium 3.9 mmol/L (3.4-5.0); Sodium 139 mmol/L (137-145); Triglycerides 215 mg/dL (<150)
[2024-02-17 12:40] LABS: LDL Cholesterol Direct 88 mg/dL
[2024-02-17 12:52] LABS: Prostate Specific Antigen 0.7 ng/mL (< OR = 4.0)
[2024-02-17 15:51] LABS: Hemoglobin A1C 8.6 % (<5.7)
== END 2024-02-17 08:51 | disposition home or self-care (01) ==
PROVIDERS: PCP Emergency Medicine; Visit Provider Emergency Medicine
DX: E11.9 Type 2 diabetes mellitus without complications (principal); E78.2 Mixed hyperlipidemia; Z12.5 Encounter for screening for malignant neoplasm of prostate
CPT/HCPCS: 36415; 80053; 80061; 83036; 84153; 85025; G0103

== ENCOUNTER 2024-03-03 16:13 | Outpatient (CLI) | payer MEDICARE, SELFPAY ==
--- NOTE | ~2024-03-03 | XR_ITS ---
EXAMINATION: XR toe 1st LT min 2V DATE: 03/03/2024 16:31 INDICATION: Pain in left toes. TECHNIQUE: 4 views of left great toe were obtained. COMPARISON: None. FINDINGS: Bone alignment is normal. No fracture. There is mild osteoarthritis of first metatarsophala ngeal joint. IMPRESSION: 1. Mild osteoarthritis of first metatarsophalangeal joint. Reviewed, dictated and finalized at location E.
== END 2024-03-03 16:14 ==
PROVIDERS: PCP Emergency Medicine; Visit Provider Emergency Medicine
DX: M79.675 Pain in left toe(s) (principal); M19.072 Primary osteoarthritis, left ankle and foot
CPT/HCPCS: 73660

== ENCOUNTER 2024-03-11 13:35 | Outpatient (CLI) | payer MEDICARE, SELFPAY ==
[2024-03-11 18:40] LABS: Uric Acid 4.7 mg/dL (3.5-8.5)
== END 2024-03-11 13:36 | disposition home or self-care (01) ==
LOC: ANHGOSHLAB 13:36
PROVIDERS: PCP Emergency Medicine; Visit Provider Emergency Medicine
DX: M79.675 Pain in left toe(s) (principal)
CPT/HCPCS: 36415; 84550

== ENCOUNTER 2024-06-16 15:17 | Outpatient (CLI) | payer MEDICARE, SELFPAY ==
[2024-06-16 18:04] LABS: Alanine Aminotransferase 30 U/L (6-50); Albumin Level 4.7 g/dL (3.5-5.1); Alkaline Phosphatase 52 U/L (38-126); Anion Gap 15 mmol/L (4-12); Aspartate Amino Transferase 48 U/L (17-59); Bilirubin,Total 0.7 mg/dL (0.2-1.3); Blood Urea Nitrogen 22 mg/dL (9-20); Carbon Dioxide 29 mmol/L (22-30); Chloride 93 mmol/L (98-107); Estimated Glomerular Filt Rate 55; Glucose 189 mg/dL (65-110); Potassium 3.9 mmol/L (3.4-5.0); Sodium 137 mmol/L (137-145)
[2024-06-16 18:38] LABS: Hemoglobin A1C 7.4 % (<5.7)
== END 2024-06-16 15:18 | disposition home or self-care (01) ==
LOC: ANHGOSHLAB 15:19
PROVIDERS: PCP Emergency Medicine; Visit Provider Emergency Medicine
DX: E11.59 Type 2 diabetes mellitus with other circulatory complications (principal)
CPT/HCPCS: 36415; 80053; 83036

== ENCOUNTER 2025-09-13 08:53 | Outpatient (CLI) | payer MEDICARE, SELFPAY ==
--- OUTSIDE RECORDS SUMMARY | 2025-09-13 09:27 | XMS_ITS | Clinical Summary ---
Author Organization [facility] Address [facility] [place] [address] Care Team Providers Care Feeder Catcher Name Role Phone EnriqueRl mendes Brit DE LEÓN Primary Care Provider + Keenan Corral MD Unavailable [phone] Joni John MD Unavailable [phone] Kingston Patel MD Unavailable Hedy Romero MD Unavailable [phone] Allergies Active Allergy Reactions Criticality Noted Date Comments Isosorbide Mononitrate Fatigue Low 10/10/2022 Severe lethargy Medications metFORMIN (GLUCOPHAGE) 500 mg tabletIndicatio ns:type 2 diabetes mellitus Take by mouth 2 (two) times a day 1000 mg in the a.m. and 500 mg in the p.m. 2 Active aspirin 81 mg enteric coated tabletIndicatio ns:prevention of thrombosis Take 1 tablet (81 mg total) by mouth nightly Active acetaminophen 500 mg capsuleIndicati ons:Fever,Pain Take 2 capsules (1,000 mg total) by mouth every 6 (six) hours as needed for pain 30 tablet 3 Active polyethylene glycol (MIRALAX) 17 gram packetIndicatio ns:constipation Take 1 packet (17 g total) by mouth daily [address] (PROTONIX) 40 mg EC tablet TAKE 1 TABLET BY MOUTH EVERY DAY 30 tablet 1 3 Active ferrous sulfate 325 mg (65 mg of elemental iron) tablet TAKE 1 TABLET (65 MG OF ELEMENTAL IRON TOTAL) BY MOUTH DAILY WITH BREAKFAST 30 tablet 3 Active metoprolol tartrate (LOPRESSOR) 25 mg immediate release tablet TAKE 1/2 OF A TABLET (12.5 MG TOTAL) BY MOUTH TWICE A DAY 90 tablet 3 3 Active tiotropium (SPIRIVA) 18 mcg per inhalation capsule Place 1 puff (1 capsule total) into inhaler and inhale daily Active cetirizine (ZyrTEC) 10 mg tablet Take 1 tablet (10 mg total) by mouth daily Active rosuvastatin (CRESTOR) 40 mg tablet Take 1 tablet (40 mg total) by mouth daily 30 tablet 4 Active lisinopril-hydr oCHLOROthiazide (ZESTORETIC) 20-12.5 mg per tabletIndicatio ns:hypertension Take 2 tablets by mouth daily 60 tablet 4 Active Active Problems Problem Noted Date Diagnosed Date Pulmonary nodules 12/04/2023 S/P CABG (coronary artery bypass graft) 11/18/19 23 S/P mitral valve repair 11/18/2022 Coronary artery disease invo lving benton coronary artery of benton heart without angina pectoris 09/23/2022 Overview (09/23/2022): Added automatically from request for surgery [id number] Chronic fatigue 08/01/2022 Abnormal stress test 06/30/2022 ACOSTA (dyspnea on exertion) 06/30/2022 Hypertension associated with diabetes 06/30/2022 Mixed diabetic hyperlipidemi a associated with type 2 diabetes mellitus 06/30/2022 Nonrheumatic mitral valve regurgitation 06/30/20 Stable angina pectoris 06/30/2022 Resolved Problems Problem Noted Date Diagnosed Date Resolved Date Coronary artery disease (CAD) excluded 10/17/2022 11/18/2022 Surgical History Surgery Date Site/Laterality Comments TONSILLECTOMY CARDIAC CATHETERIZATION OTHER SURGICAL HISTORY 08/02/2022 - 09/01/2022 ROBERT CORONARY ARTERY BYPASS GRAFT Medical History Medical History Date Comments Hypertension Diabetes mellitus Abnormal stress test 06/2022 ACOSTA (dyspnea on exertion) 06/2022 Hypertension associated with diabetes (HCC) 08/2 022 Mixed diabetic hyperlipidemi a associated with type 2 diabetes mellitus (HCC) 06/2022 Nonrheumatic mitral valve regurgitation 06/2022 Stable angina pectoris 06/2022 Coronary artery disease invo lving benton coronary artery of benton heart without angina pectoris 09/2022 Chronic fatigue 07/2022 White coat syndrome without diagnosis of hyperte nsion Hx of CABG 10/22/2022 Anemia GERD (gastroesophageal reflux disease) Family History Medical History Relation Name Comments Cancer Mother Relation Name Status Comments Father unknown Other Mother Social History Tobacco Use Types Packs/Day Years Used Date Smoking Tobacco: Never Passive Smoke Exposure: Never Smokeless Tobacco: Never Tobacco Cessation:Counseling Given: Not Answered OASIS [id number]: Social Isolation Answer Da te Recorded Frequency of experiencing loneliness or isolatio n Never 11/04/2022 AUDIT-C Answer Date Recorded Q1: How often do you have a drink containing alc ohol? Monthly or less 12/04/2023 Average Number of Drinks Not on file 024 Frequency of Binge Drinking Not on file 12/2023 Overall Financial Resource Strain (CARDIA) Answe r Date Recorded How hard is it for you to pa y for the very basics like food, housing, medical care, and heating? Not hard at all 10/20/2022 Hunger Vital Sign Answer Date Recorded Within the past 12 months, y ou worried that your food would run out before you got the money to buy more. Never true 10/20/20 22 Within the past 12 months, t he food you bought just didn't last and you didn't have money to get more. Never true 10/20/2022 PRAPARE - Transportation Answer Date Re corded In the past 12 months, has l ack of transportation kept you from medical appointments or from getting medications? No 10/02 In the past 12 months, has l ack of transportation kept you from meetings, work, or from getting things needed for daily living? No 10/20/2022 Housing Stability Vital Sign Answer Roberto Carlos e Recorded In the last 12 months, was t here a time when you were not able to pay the mortgage or rent on time? No 10/20/2022 Number of Places Lived in the Last Year Not on f ile 10/20/2022 In the last 12 months, was t here a time when you did not have a steady place to sleep or slept in a usp (including now)? No 10/20/2022 Personal Safety Answer Date Recorded Have you ever been in or are you currently in a harmful physical or emotional relationship or is someone making you feel afraid or unsafe? Denies 02/18/2023 Sex and Gender Information Value Date Recorded Sex Assigned at Not on file Legal Sex Male 2:25 AM RESTORATIVE COORDINATOR Gender Identity Not on file Sexual Orientation Not on file Last Filed Vital Signs Vital Sign Reading Time Taken Comments Blood Pressure 138/76 02/18/2023 12:45 PM CDT Pulse 54 02/18/2023 12:45 PM CDT Temperature 36.3 C (97.3 F) 12/08/2022 1:50 PM RESTORATIVE COORDINATOR Respiratory Rate 20 02/18/2023 12:45 PM CDT Oxygen Saturation 100% 02/18/2023 12:45 PM CDT Inhaled Oxygen Concentration - - Weight 107.5 kg (237 lb) 12/04/2023 4:05 PM RESTORATIVE COORDINATOR Height 177.8 cm (5' 10) 12/04/2023 4:05 PM RESTORATIVE COORDINATOR Body Mass Index 34.01 12/04/2023 4:05 PM RESTORATIVE COORDINATOR Plan of Treatment Health Maintenance Due Date Last Done Comments Albumin Creatinine Ratio, Urine 1959 Colon Cancer Screening-Colonoscopy 1959 Depression Screening 1959 Hepatitis C Screening 1959 Prostate Cancer Screening-PSA 1959 Dilated Eye Exam 1959 Foot Exam 1959 DTaP/Tdap/Td Vaccine (1 - Tdap) 1970 Hepatitis B Screening 1977 Pneumococcal vaccine 65+ (1 of 2 - PCV) 1978 Zoster Vaccine (1 of 2) 2009 Hemoglobin A1C 04/10/2023 10/10/2022 Lipid Panel 01/09/2024 01/08/2023, 07/05, 05/09/2022 Abdominal Aortic Aneurysm (A AA) Screen 01/20/2024 Well Visit 65+ 01/20/2024 Fall Risk Assessment 02/19/2024 02/18/2023 eGFR 02/19/2024 02/18/2023, 07/2023, 11/02/2022, Additional history exists Covid-19 Vaccine (5 - 2024-2 6 season) 2025 06/23/2022, 11/12/2021, 02/01/2021, Additional history exists Influenza Vaccine (#1) 2025 2, 09/07/2018, 08/06/2017, Additional history exists Medical Devices Implanted Type Area Security Program Manager Device Identifier Shelf Expiration Date Model / Serial / Lot [employer] Mikal-Kobe s Physio Ii 32mm Goldstein Sew Mitral Ring [id number] - [id number] - [id number] Implanted:Qty: 1 on 10/17/2022 by Keenan Corral MD at [facility] N/A: Heart [employer] 11/27/2026 [id number] / [id number] / Procedures Procedure Name Priority Date/Time Associated Diagnosis Comments EGFR STAT 02/18/2023 8:48 AM CDT LIPID PANEL Routine 01/08/2023 HEMOGLOBIN A1C Routine 10/10/2022 12:29 PM RESTORATIVE COORDINATOR Preop testing from Last 3 Months or Most Recently Relevant to Health Maintenance Results * eGFR (02/18/2023 8:48 AM CDT) eGFR 66 mL/min/1. 73 m2 SY PANIAGUA Comment: Interpretive Data Reference Interval Normal >/= 90 mL/min/1.73m2 Mildly decreased* 60 - 89 mL/min/1.73m2 Mildly to moderately decreased 45 - 59 mL/min/1.73m2 Moderately to severely decreased 30 - 44 mL/min/1.73m2 Severely decreased 15 - 29 mL/min/1.73m2 Kidney Failure < 15 mL/min/1.73m2 *Relative to young adult level Estimated glomerular filtration rate is determined by the 2020 CKD-EPI equation recommended by the National Kidney Foundation (A Unifying Approach to GFR Estimation: Recommendations of the NKF-ASK Task Force on Reassessing the Inclusion of Race in Diagnosing Kidney Disease, JASN 2020). The CKD-EPI equation should not be used for patients with unstable renal function and has not been validated in children and those over 70. Current interpretive data was last reviewed 2021. Blood 02/18/2023 8:48 AM CDT 02/18/2023 9:12 AM CDT Hedy Romero MD LAB BLOOD ORDERABLES Fi nal Result Performing Organization Address [facility] Co de Phone Number DOMINICKIZAIAH [id number] [place] [address] * Lipid panel (01/08/2023) SCRIBED Cholesterol, Total 176 100 - 199 EXTERNAL LAB SCRIBED HDL 40 >39 EXTERNAL LAB SCRIBED LDL 82 <130 EXTERNAL LAB SCRIBED Triglycerides 250 0 - 149 EXTERNAL LAB Blood Result [facility] Priscilla Anton MD LAB BLOOD ORDERABLES Edit ed Result - Final Performing Organization Address [facility] Co de Phone Number EXTERNAL LAB * (ABNORMAL) Hemoglobin A1c (10/10/2022 12:29 PM RESTORATIVE COORDINATOR) Hgb A1C 8.6(H) 4.0 - 5.6 % SY PANIAGUA Estimated Average Glucose 200 mg/dL SY PANIAGUA Comment: The ADA recommends reporting an estimated Average Glucose (eAG) with all Hemoglobin A1c results using the equation derived from a study of 507 normal and diabetic adults. Minority populations were underrepresented and children were not included. (Diabetes Care 31:0463-8444, 2008). The eAG is not equivalent to a fasting glucose. Blood 10/10/2022 12:2 9 PM RESTORATIVE COORDINATOR 10/10/2022 12:50 PM RESTORATIVE COORDINATOR Keenan Corral MD LAB BLOOD ORDERABLES Final R esult Performing Organization Address [facility] Co de Phone Number DOMINICKIZAIAH PANIAGUA [phone] [place] [address] from Last 3 Months or Most Recently Relevant to Health Maintenance Insurance [facility] [id number] [employer] [facility] [id number] [facility] [id number] Advance Directives For more information, please contact: [phone] * Full Code (Latest Code Status on File) Date Activated Date Inactivated Comments 10/17/2022 5:03 PM 11/02/2022 7:43 PM Care Teams Feeder Catcher Relationship Specialty Start Date End Date Rl Enrique PA [address] [place] [address] PCP - General Physician Director Communications 05/07/22 Keenan Corral MD [address] [place] [address] Surgeon Cardiothoracic Surgery 11/02/22 Joni John MD [address] [place] [address] Consulting Physician Cardiology 11/02/22 [place] [id number] [address] [facility] [address] [place] [address] Consulting Physician Gastroenterology 11/02/22 [place] [id number] [address] [address] [place] [address] Consulting Physician Pulmonary Disease 11/02/22
[2025-09-13 13:13] LABS: Hematocrit 44.2 % (42.0-52.0); Hemoglobin 13.7 g/dL (14.0-18.0); Immature Granulocyte Percent A 0.3 % (0-0.5); Lymphocytes Absolute Auto 3.46 K/mm3 (0.9-3.2); Mean Corpuscular HGB Conc 31.0 g/dl (32-36); Mean Corpuscular Hemoglobin 27.0 pg (26-34); Mean Corpuscular Volume 87.0 fl (80-100); Nucleated Red Blood Cells Absolute Auto 0.000 K/mm3 (0.0-0.012); Nucleated Red Blood Cells Perc 0.0 % (0.0-0.2); Platelet Count Result 265 k/mm3 (150-375); Red Blood Count 5.08 M/mm3 (4.6-6.20); White Blood Count 9.9 K/mm3 (4.5-10.0)
[2025-09-13 13:21] LABS: Alanine Aminotransferase 21 U/L (6-50); Albumin Level 4.4 g/dL (3.5-5.1); Alkaline Phosphatase 43 U/L (38-126); Anion Gap 9 mmol/L (4-12); Aspartate Amino Transferase 36 U/L (17-59); Bilirubin,Total 0.6 mg/dL (0.2-1.3); Blood Urea Nitrogen 24 mg/dL (9-20); Calcium 9.8 mg/dL (8.4-10.2); Carbon Dioxide 32 mmol/L (22-30); Chloride 97 mmol/L (98-107); Cholesterol 127 mg/dL (0-200); Estimated Glomerular Filt Rate > 60; Glucose 119 mg/dL (65-110); HDL Direct 39 mg/dL; Potassium 4.0 mmol/L (3.4-5.0); Sodium 138 mmol/L (137-145); Total Protein 7.7 g/dL (6.3-8.2); Triglycerides 189 mg/dL (<150)
[2025-09-13 13:53] LABS: Ferritin 71.70 ng/mL (11.1-264); MALB Creatinine Ratio 22.1 mg/g (0-30)
[2025-09-13 14:00] LABS: Prostate Specific Antigen 0.8 ng/mL (< OR = 4.0)
[2025-09-13 14:43] LABS: Hemoglobin A1C 7.3 % (<5.7)
== END 2025-09-13 08:54 | disposition home or self-care (01) ==
LOC: ANHGOSHLAB 08:54
PROVIDERS: PCP Nurse Practitioner; Visit Provider Nurse Practitioner
DX: E11.59 Type 2 diabetes mellitus with other circulatory complications (principal); Z12.5 Encounter for screening for malignant neoplasm of prostate; D50.9 Iron deficiency anemia, unspecified; E78.2 Mixed hyperlipidemia
CPT/HCPCS: 36415; 80053; 80061; 82043; 82728; 83036; 84153; 85025; G0103